=== PATIENT | male | born 1990 | race African-American/Black ===

== ENCOUNTER 2019-04-06 02:03 | Emergency (ER) | payer OTHER ==
[2019-04-06 02:08] VITALS: BP 150/115
--- NOTE | 2019-04-06 02:54 | ED ---
Medical Screening - HPI Summary HPI Summary: This patient is a 28 year old M brought to [facility] accompanied by police with a chief complaint of needing medical clearance. Patient reports he was arrested for DWI and there was no reported accident or damage to the car. Patient admits to cocaine use earlier. Pt denies complaints. Denies shx, medical problems, Fhx. - History of Current Complaint Chief Complaint: EDGeneral Stated Complaint: LEGAL DRAW PER POLICE Time Seen by Provider: 04/06/19 02:12 Onset/Duration: Still Present PMH/Surg Hx/FS Hx/Imm Hx Sensory History: Denies: Hx Legally Blind, Hx Deafness Opthamlomology History: Denies: Hx Legally Blind EENT History: Denies: Hx Deafness - Surgical History Surgery Procedure, Year, and Place: none Infectious Disease History: No Infectious Disease History: Denies: Traveled Outside the [place] in Last 30 Days - Family History Known Family History: Positive: None - Social History Alcohol Use: Occasionally Hx Substance Use: Yes Substance Use Type: Reports: Cocaine, Other Substance Use Comment - Amount & Last Used: "occasionally" Hx Tobacco Use: No Smoking Status (MU): Never Smoked Tobacco Review of Systems Negative: Fever Positive: Other - AWI All Other Systems Reviewed And Are Negative: Yes Physical Exam - Summary Physical Exam Summary: General: Well appearing, no distress HEENT: PERRL Cardiovascular: Skin is well perfused, tachycardic. 2+ radial pulses. Pulmonary: No respiratory distress, no tachypnea Abdomen: Non-distended Skin: Warm, pink, dry MSK: No edema Psych: Normal affect Neuro: A&Ox3 Triage Information Reviewed: Yes Vital Signs On Initial Exam: Initial Vitals Temp Pulse Resp BP Pulse Ox 98.8 F 118 18 150/115 100 04/06/19 02:04 04/06/19 02:04 04/06/19 02:04 04/06/19 02:04 04/06/19 02:04 Vital Signs Reviewed: Yes Diagnostics - Vital Signs Vital Signs Temp Pulse Resp BP Pulse Ox 04/06/19 02:04 98.8 F 118 18 150/115 100 - Laboratory Lab Statement: Any lab studies that have been ordered have been reviewed, and results considered in the medical decision making process. Course/Dx - Course Course Of Treatment: 28-year-old male presents for medical clearance for DWI with cocaine use. Initially tachycardic to 118, patient denies complaints, no motor vehicle accident. HR dec to 98 w/o intervention. Ambulated in ED. DC to longterm. - Diagnoses Provider Diagnoses: Encounter for medical clearance for patient hold Discharge ED - Sign-Out/Discharge Documenting (check all that apply): Patient Departure - discharge Patient Received Moderate/Deep Sedation with Procedure: No - Discharge Plan Condition: Stable Disposition: HOME Patient Education Materials: Polysubstance Abuse (ED) Referrals: No Primary Care Phys,NOPCP [Primary Care Provider] - Additional Instructions: You were seen in the emergency department for medical clearance and cocaine use. Please do not use drugs or drink and drive. It was a pleasure taking care of you today. - Billing Disposition and Condition Condition: STABLE Disposition: Home - Attestation Statements Document Initiated by Garyibe: Yes Documenting Scribe: Nicole Weinstein Provider For Whom Kenny is Documenting (Include Credential): Dr. Julio Lobo MD Scribe Attestation: I, Nicole Weinstein, scribed for Dr. Julio Lobo MD on 04/06/19 at 0453. Scribe Documentation Reviewed: Yes Provider Attestation: The documentation as recorded by the Nicole gonzalez accurately reflects the service I personally performed and the decisions made by me, Dr. Julio Lobo MD Status of Scribe Document: Viewed
== END 2019-04-06 02:56 | disposition home or self-care (01) ==
LOC: ED 02:03
DX: Z02.83 Encounter for blood-alcohol and blood-drug test (principal)
CPT/HCPCS: 99282